=== PATIENT | male | born 1955 | race Caucasian/White ===

== ENCOUNTER 2021-10-07 18:41 | Emergency (ER) | payer MEDICARE, SELFPAY ==
[2021-10-07 18:44] VITALS: BP 144/81; PULSE 76; RESP 14; TEMP 36.2; BMI 31.1
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
--- NOTE | 2021-10-07 19:07 | RAD_ITS ---
STUDY: X-RAY - RIGHT KNEE REASON FOR EXAM: Male, 66 years old. Injury/Pain TECHNIQUE: For view(s) of the knee. COMPARISON: None. FINDINGS: Please see the impression. RAD/Knee 4 or More Views IMPRESSION: Nondisplaced fracture of the lateral tibial plateau, of uncertain age. CT scan is recommended for further evaluation. Mild to moderate tricompartmental osteoarthritis. Small suprapatellar joint effusion. Electronically Signed: Jensen Hayden MD at 19:32 EDT ,
--- NOTE | 2021-10-07 19:37 | CT_ITS ---
EXAM: CT RIGHT LOWER EXTREMITY WITHOUT INTRAVENOUS CONTRAST CLINICAL INDICATION: knee pain FALL, TWISTED LEG, KNEE PAIN TECHNIQUE: Helically acquired images were obtained of the right lower extremity without intravenous contrast. 2-D reformats were performed by the technologist. This CT exam was performed using one or more of the following dose reduction techniques: automated exposure control, adjustment of the mA and/or kV according to patient size, and/or use of iterative reconstruction technique. This report was created using [employer] report [employer] technology. RADIATION DOSE: CTDIvol = 15.35 mGy, DLP = 580.19 mGy-cm COMPARISON: None. FINDINGS: BONES/JOINTS: Small suprapatellar effusion. Small calcification in the lateral joint space. There is moderate degenerative arthrosis of the medial femorotibial compartment with moderate joint space narrowing. There is moderate degenerative arthrosis of the lateral femorotibial compartment with moderate joint space narrowing. There is moderate degenerative arthrosis of the patellofemoral articulation. No acute fracture. No subluxation. Normal alignment. SOFT TISSUES: Unremarkable. No soft tissue swelling or gas. No radiopaque foreign body. VASCULATURE: There are atherosclerotic vascular calcifications. CT/Extremity Lower without Contra IMPRESSION: 1. Small suprapatellar effusion. 2. Degenerative arthrosis. No acute fractures. Electronically Signed: Brooks Kam MD at 20:16 EDT Reading Location ID and State: [facility] / [place] , Service support ,
== END 2021-10-07 21:02 | disposition home or self-care (01) ==
PROVIDERS: Emergency Provider Emergency Medicine; PCP Family Medicine; Visit Provider Emergency Medicine
DX: S83.91XA Sprain of unspecified site of right knee, initial encounter (principal); J44.9 Chronic obstructive pulmonary disease, unspecified; E11.9 Type 2 diabetes mellitus without complications; M25.469 Effusion, unspecified knee; I10 Essential (primary) hypertension; W18.49XA Other slipping, tripping and stumbling without falling, initial encounter; Y92.017 Garden or yard in single-family (private) house as the place of occurrence of the external cause
CPT/HCPCS: 73564; 73700; 99282

== ENCOUNTER 2022-02-18 16:51 | Emergency (ER) | payer MEDICARE, SELFPAY ==
[2022-02-18 16:53] VITALS: BP 133/84; PULSE 72; RESP 14; TEMP 36.8; O2SAT 93; BMI 30.8
--- NOTE | 2022-02-18 19:33 | EDS_ITS ---
HPI History of Present Illness Chief Complaint: Complaint Narrative Narrative: Prostate cancer, had urinary retention with a catheter placed 2 weeks ago. Followed up with his urologist Dr. Medina in [place] yesterday, they did a voidance test that he passed, so they removed his catheter/left it out, but he had urinary retention again last night after the office was closed so he went to the [facility] and had a new catheter placed. He has had no gross hematuria since then, however now the flow stopped going through the catheter and he is leaking around it. He states he feels like he just emptied his entire bladder around the catheter. So now he is comfortable with regards to his abdomen. No fevers, nausea, vomiting, back pain. Yesterday with his voidance test, he did see quite a bit of sediment or blood clots he is not sure which. [facility] Medical History (Updated 02/18/22 @ 20:[address] Enzo Trevino MD) Cholecystectomy planned COPD (chronic obstructive pulmonary disease) Hypertension Marijuana smoker Prostate cancer Type 2 diabetes mellitus Allergy/AdvReac Type Severity Reaction Status Date / Time Penicillins [PCN] AdvReac Other Verified 02/18/22 16:52 Social History Smoking Status: Never smoker ROS ROS ED Constitutional Constitutional ED: Denies chills or fever(s) Eyes Eyes: Denies change in vision or diplopia ENT ENT ED: Denies rhinorrhea or sore throat Cardiovascular Cardiovascular: Denies chest pain or palpitations Respiratory/Chest Respiratory/Chest: Denies cough or dyspnea Gastrointestinal Gastrointestinal: Denies abdominal pain, diarrhea, nausea or vomiting Genitourinary Genitourinary ED: Reports as per HPI; Denies dysuria or hematuria Musculoskeletal Musculoskeletal: Denies back pain or neck pain Integumentary Denies abscess or rash Neurologic Neurologic: Denies headache(s), paresthesias or weakness Psychiatric Psychiatric: Denies anxiety or suicidal thoughts EXAM Physical Exam Const Vital Signs: 02/18/22 16:53 Temperature 98.2 F Temperature Source Temporal Pulse Rate 72 Respiratory Rate 14 Blood Pressure 133/84 H Blood Pressure Mean 100 Pulse Ox 93 Oxygen Delivery Method Room Air Positive well nourished and well developed General Appearance ED: well developed and NAD HEENT Reports moist mucous membranes normocephalic and atraumatic Eyes PERRL and EOMs intact bilaterally Neck full ROM and supple Resp normal respiratory effort GI non-tender and non-distended Auscultation: normoactive bowel sounds Palpation: soft Narrative: Normal penis. Nicolas catheter in place, no flow within it, nonbloody urine around it present. No erythema or blood at the urethral meatus. [address] Extremity normal to inspection General Extremety ED: Negative for edema, pulses abnormal or tenderness General Extremity: Negative for edema or pulses abnormal Neuro oriented x3, CN's II-XII intact bilaterally and no sensory deficits noted Sensorium / Orientation: awake and alert Motor Exam: strength 5/5 throughout Skin no rashes or lesions noted and no wounds MDM MDM MDM Narrative Medical decision making narrative: Nursing irrigated the catheter easily. Urine came flowing out of the catheter this was emptied and bladder scan for 50 cc. The patient drank fluids and subsequently drained 300 cc of transparent yellow nonbloody urine into the bag without any more leaking around the catheter. Given this I recommend discharging home with continued observation and follow-up with urology, return to the ER if catheter clogs again, I would recommend not replacing the catheter if its not needed. Patient is amenable to that and feels better. Discharge Plan Triage Chief Complaint: Complaint ED Provider: Enzo Trevino Dx/Rx/DC Orders Clinical Impression: Obstruction of Nicolas catheter Instructions: ED Nicolas Catheter, Care Primary Care Provider: Maranda Akhtar Referrals: Owen Medina [Other] (call for follow up ) Maranda Akhtar MD [Primary Care Provider] - Disposition Disposition: Home, Self Care
== END 2022-02-18 21:16 | disposition home or self-care (01) ==
PROVIDERS: Emergency Provider Emergency Medicine; PCP Family Medicine; Visit Provider Emergency Medicine
DX: T83.091A Other mechanical complication of indwelling urethral catheter, initial encounter (principal); J44.9 Chronic obstructive pulmonary disease, unspecified; E11.9 Type 2 diabetes mellitus without complications; I10 Essential (primary) hypertension; R33.9 Retention of urine, unspecified; Z85.46 Personal history of malignant neoplasm of prostate
CPT/HCPCS: 99282

== ENCOUNTER 2022-03-14 15:32 | Emergency (ER) | payer MEDICARE, SELFPAY ==
[2022-03-14 15:33] VITALS: BP 162/85; PULSE 74; RESP 18; TEMP 36.5; O2SAT 95; BMI 31.1
--- NOTE | 2022-03-14 16:07 | EDS_ITS ---
HPI <ELE Salguero - Last Filed: 03/14/22 21:49> History of Present Illness Chief Complaint: General Illness Narrative Narrative: Patient reports to the ED today with nausea that started this morning. He states he also feels he is getting a URI due to having a runny nose and cough that started yesterday. He states he took a COVID test this morning that was inconclusive. Patient currently has a Nicolas catheter due to urinary retention but denies having any current problems with this. He also has prostate cancer and is currently following with urology. He denies fever, chills, abdominal pain, diarrhea, vomiting, and dysuria. He states he occasionally gets hematuria but denies having any today. PFSH <ELE Salguero - Last Filed: 03/14/22 21:49> [facility] Medical History Cholecystectomy planned COPD (chronic obstructive pulmonary disease) Hypertension Marijuana smoker Prostate cancer Type 2 diabetes mellitus Home Medications ondansetron 4 mg disintegrating tablet 4 mg PO Q8H PRN nausea and vomiting #10 tabs 03/14/22 [Rx Last Taken Unknown] Allergy/AdvReac Type Severity Reaction Status Date / Time Penicillins [PCN] AdvReac Other Verified 03/14/22 15:37 Social History Smoking Status: Never smoker ROS <ELE Salguero - Last Filed: 03/14/22 21:49> ROS ED Constitutional Constitutional ED: Denies chills, fever(s) or sweats Eyes Eyes: Denies blurry vision or change in vision ENT ENT ED: Reports rhinorrhea and sore throat Cardiovascular Cardiovascular: Denies chest pain or palpitations Respiratory/Chest Respiratory/Chest: Reports cough; Denies dyspnea, dyspnea on exertion, shortness of breath at rest, shortness of breath with exertion, tachypnea or wheezing Gastrointestinal Gastrointestinal: Reports nausea; Denies abdominal pain, constipation, diarrhea or vomiting Genitourinary Genitourinary ED: Denies dysuria or hematuria Musculoskeletal Musculoskeletal: Denies back pain or myalgias Integumentary Denies abscess, Abrasions or rash Neurologic Neurologic: Denies headache(s) or weakness EXAM <ELE Salguero - Last Filed: 03/14/22 21:49> Physical Exam Const Vital Signs: 03/14/22 15:33 03/14/22 18:40 Temperature 97.7 F L Temperature Source Temporal Pulse Rate 74 Respiratory Rate 18 Blood Pressure 162/85 H 157/84 H Blood Pressure Mean 110 108 Pulse Ox 95 Oxygen Delivery Method Room Air Positive well nourished and well developed General Appearance ED: well developed HEENT Reports moist mucous membranes Eyes PERRL and EOMs intact bilaterally Neck supple Chest Wall inspection of chest normal Resp normal respiratory effort and clear to auscultation bilaterally Cardio regular rate, regular rhythm and no murmurs GI normal to inspection, nondistended, normoactive bowel sounds, non-tender and no masses; Negative for hepatosplenomegaly Narrative: urine in leg bag appears dark but no evidence of gross hematuria. Neuro oriented x3, CN's II-XII intact bilaterally and no sensory deficits noted Sensorium / Orientation: alert Motor Exam: strength 5/5 throughout Psych mental status grossly normal Skin no rashes or lesions noted, no wounds and skin turgor normal <Dr. Ryan Nguyen, DO - Last Filed: 03/14/22 22:12> Physical Exam Const Vital Signs: 03/14/22 15:33 03/14/22 18:40 Temperature 97.7 F L Temperature Source Temporal Pulse Rate 74 Respiratory Rate 18 Blood Pressure 162/85 H 157/84 H Blood Pressure Mean 110 108 Pulse Ox 95 Oxygen Delivery Method Room Air MDM <ELE Salguero - Last Filed: 03/14/22 21:49> [facility] Narrative Medical decision making narrative: Patient was given IV fluids due to dark appearance of urine and this significantly improved after IV fluids. Patient has tested positive for COVID- 19 but does not have any concerning symptoms here such as shortness of breath or difficulty breathing. His lungs sound clear and his vital signs are stable. His urine has been cultured to assess for acute cystitis. I feel comfortable with him discharging home with a prescription for Zofran. Patient is comfortable with plan. He has been instructed to return if he develops any worsening symptoms or has difficulty breathing or shortness of breath. Lab Data Attestation: I reviewed the patient's lab results. Lab results narrative: CBC significant for elevated neutrophils, monocytes, and eosinophils as well as decreased lymphocytes. This consistent with an infection from COVID. CMP unremarkable. Urine has been sent for culture. Labs: Laboratory Results - last 24 hr 03/14/22 03/14/22 03/14/22 16:44 16:44 16:50 WBC 5.8 RBC 4.36 L Hgb 12.6 L Hct 38.5 L MCV 88.3 MCH 28.9 MCHC 32.7 RDW Std Deviation 40.9 RDW Coeff of Tiff 12.6 Plt Count 157 MPV 10.2 Immature Gran % (Auto) 0.500 Neut % (Auto) 70.7 H Lymph % (Auto) 5.5 L [place] % (Auto) 16.3 H Eos % (Auto) 6.1 H Baso % (Auto) 0.9 Absolute Neuts (auto) 4.1 Absolute Lymphs (auto) 0.32 L Nucleated RBC % 0 Differential Comment SCANNED Sodium 135 L Potassium 4.1 Chloride 100 Carbon Dioxide 27.0 Anion Gap 8 BUN 22 H Creatinine 0.93 Estim Creat Clear Calc 84.60 Est GFR (MDRD) Af Amer 104 Est GFR (MDRD) Non-Af 86 BUN/Creatinine Ratio 23.7 H Glucose 203 H Calcium 9.1 Urine Color Yellow Urine Clarity Sl. Cloudy Urine pH 6.0 Ur Specific [place] 1.020 Urine Protein 100 H Urine Glucose (UA) 50 H Urine Ketones Negative Urine Occult Blood 250 H Urine Nitrite Negative Urine Bilirubin Negative Urine Urobilinogen Normal Ur Leukocyte Esterase 500 H Urine RBC 10-25 SEEN Urine WBC 25-50 SEEN Ur Squamous Epith Cells 0 SEEN Urine Bacteria 0 SEEN Urine Mucus 0 SEEN <Dr. Ryan Nguyen, DO - Last Filed: 03/14/22 22:12> [facility] Lab Data Labs: Laboratory Results - last 24 hr 03/14/22 03/14/22 03/14/22 16:44 16:44 16:50 WBC 5.8 RBC 4.36 L Hgb 12.6 L Hct 38.5 L MCV 88.3 MCH 28.9 MCHC 32.7 RDW Std Deviation 40.9 RDW Coeff of Tiff 12.6 Plt Count 157 MPV 10.2 Immature Gran % (Auto) 0.500 Neut % (Auto) 70.7 H Lymph % (Auto) 5.5 L [place] % (Auto) 16.3 H Eos % (Auto) 6.1 H Baso % (Auto) 0.9 Absolute Neuts (auto) 4.1 Absolute Lymphs (auto) 0.32 L Nucleated RBC % 0 Differential Comment SCANNED Sodium 135 L Potassium 4.1 Chloride 100 Carbon Dioxide 27.0 Anion Gap 8 BUN 22 H Creatinine 0.93 Estim Creat Clear Calc 84.60 Est GFR (MDRD) Af Amer 104 Est GFR (MDRD) Non-Af 86 BUN/Creatinine Ratio 23.7 H Glucose 203 H Calcium 9.1 Urine Color Yellow Urine Clarity Sl. Cloudy Urine pH 6.0 Ur Specific [place] 1.020 Urine Protein 100 H Urine Glucose (UA) 50 H Urine Ketones Negative Urine Occult Blood 250 H Urine Nitrite Negative Urine Bilirubin Negative Urine Urobilinogen Normal Ur Leukocyte Esterase 500 H Urine RBC 10-25 SEEN Urine WBC 25-50 SEEN Ur Squamous Epith Cells 0 SEEN Urine Bacteria 0 SEEN Urine Mucus 0 SEEN Radiography Diagnostic Testing: This patient was seen with a PA/MATH AND PHYSICS INSTRUCTOR Individually assessed they patient including history and physical. I have reviewed everything on the chart that is available and agree with the documentation provided by the PA/MATH AND PHYSICS INSTRUCTOR including discussion about the assessment, treatment plan, discussion, and return precautions. Patient presenting with some mild nausea. He does not have abdominal pain. He does state that his urine is sometimes dark and sometimes clear. Obtained a urinalysis today from his Bridgette catheter tubing while the leg bag was being changed. There is some occult blood here. There is 500 leukocyte esterase. 25-50 white blood cells without bacteria. I will send this for culture. Patient also tested himself for COVID today because he thought he had a cold for last couple days. He reported this was negative but then said it might of been faintly positive. His blood work did not show a leukocytosis and is lymphopenic. I did recheck a COVID swab here and it was positive for COVID. He is counseled on this. I think he can be discharged home with Zofran. Return precautions discussed. Discharge Plan Triage Chief Complaint: General Illness Other Complaint: Complaint ED Midlevel Provider: Mirela Seo ED Provider: Ryan Nguyen Dx/Rx/DC Orders Clinical Impression: COVID-19, Nausea Instructions: Coronavirus Disease 2019 (COVID-19): Caring for Yourself or Others Prescriptions: New ondansetron 4 mg tablet,disintegrating 4 mg PO Q8H PRN (Reason: nausea and vomiting) Qty: 10 0RF Primary Care Provider: Maranda Akhtar Referrals: Maranda Akhtar MD [Primary Care Provider] - 1 Week if not improving Activity Restrictions/Additional Instructions: Stay well-hydrated and use ibuprofen or Tylenol for fever control if one develops. Please seek medical attention if you develop shortness of breath, difficulty breathing, or worsening of symptoms. Disposition Disposition: Home, Self Care Discharge Date/Time: 03/14/22 18:41
[2022-03-14] MEDS: 0.9% Normal Saline 1,000 ML 999 ML IV (16:49)
[2022-03-14 16:52] LABS: Absolute Lymphocyte Count 0.32 X10^3/uL (0.83-4.51); Absolute Neutrophil Count 4.1 X10^3/uL (2.0-7.7); Basophil# 0.05 X10^3/uL; Basophil% 0.9 % (0-1); Eosinophil# 0.35 X10^3/uL; Eosinophils% 6.1 % (0-5); Hematocrit 38.5 % (40-54); Hemoglobin 12.6 g/dL (13.0-16.5); Lymphocyte # 0.32 X10^3/ul (0.83-4.51); Lymphocyte % 5.5 % (19-41); Mean Corp Hgb Conc 32.7 g/dL (32-36); Mean Corpuscular Hgb 28.9 pg (27.0-32.0); Mean Corpuscular Volume 88.3 fL (80-94); Mean Platelet Vol. 10.2 fl (6.2-12.0); Monocyte# 0.94 X10^3/uL; Monocyte% 16.3 % (0-10); NRBC Flagged by Analyzer 0 % (0-5); Neutrophil # 4.08 X10^3/uL (2.7-7.7); Neutrophil % 70.7 % (47-70); POSITIVE DIFFERENTIAL YES; Platelet Count 157 K/mm3 (150-450); RBC Distribution Width CV 12.6 % (11.6-14.6); RBC Distribution Width SD 40.9 fl (35.1-43.9); Red Blood Count 4.36 M/mm3 (4.6-6.2); White Blood Count 5.8 K/mm3 (4.4-11.0)
[2022-03-14 16:55] LABS: Bacteria 0 SEEN /hpf (None Seen); Mucous, Urine 0 SEEN /hpf (<or=2+); Squamous Epithelial Cells - UA 0 SEEN /hpf (0-5)
[2022-03-14 16:57] LABS: Color, Urine Yellow (Yellow); Glucose, Dipstick 50 mg/dl (Normal); Ketone-Dipstick Negative (Negative); Leukocyte Esterase-Dipstick 500 /ul (Negative); Nitrite-Dipstick Negative (Negative); Occult Blood-Urine 250 /ul (Negative); Protein-Dipstick 100 mg/dl (Negative); Urine Bilirubin Dipstick Negative (Negative); Urine Clarity Sl. Cloudy (Clear); Urine Urobilinogen Normal (Normal)
[2022-03-14 17:02] LABS: Anion Gap 8 (5-15); BUN 22 mg/dL (7-18); BUN/Creat Ratio 23.7 RATIO (10-20); Calcium,Total 9.1 mg/dL (8.5-10.1); Chloride 100 mmol/L (98-107); Creatinine, Serum 0.93 mg/dL (0.70-1.30); EST Glomerular Filtration Rate 86 mL/min (>60); Est Glom Filt Rate - Afr Amer 104 mL/min (>60); Glucose 203 mg/dL (74-106); Potassium 4.1 mmol/L (3.5-5.1); Sodium Level 135 mmol/L (136-145)
[2022-03-14 17:12] LABS: Red Blood Cells-Urine 10-25 SEEN /hpf (0-5); White Blood Cells 25-50 SEEN /hpf (0-5)
[2022-03-14 17:30] LABS: Differential Indicated SCAN CRITERIA MET
[2022-03-14 17:52] LABS: Differential Comment SCANNED
[2022-03-14 18:40] VITALS: BP 157/84
== END 2022-03-14 18:41 | disposition home or self-care (01) ==
PROVIDERS: Physician Assistant; Emergency Provider Student in an Organized Health Care Education/Training Program; PCP Family Medicine; Visit Provider Student in an Organized Health Care Education/Training Program
DX: U07.1 COVID-19 (principal); C61 Malignant neoplasm of prostate; R33.9 Retention of urine, unspecified; F12.90 Cannabis use, unspecified, uncomplicated; R11.0 Nausea
CPT/HCPCS: 80048; 81001; 85025; 87077; 87086; 87088; 87186; 87811; 96361; 96374; 99283; J2405

== ENCOUNTER 2022-03-19 22:08 | Emergency (ER) | payer MEDICARE, SELFPAY ==
[2022-03-19 22:08] VITALS: BP 132/74; PULSE 62; RESP 17; TEMP 36.3; O2SAT 95; BMI 32.8
[2022-03-19 22:15] VITALS: O2SAT 96
--- NOTE | 2022-03-19 22:37 | RAD_ITS ---
EXAM: XR CHEST, 1 VIEW CLINICAL INDICATION: cough TECHNIQUE: 2 portable upright views of the chest. This report was created using [employer] report generation technology. COMPARISON: None. FINDINGS: LUNGS AND PLEURAL SPACES: Discoid atelectasis is noted in the right lower lung on one of the 2 views. No consolidation or edema. No pneumothorax. Slight blunting of the left lateral costophrenic angle due to basilar pleural thickening versus a minimal pleural effusion. No peribronchial cuffing. HEART: Upper normal heart size with normal pulmonary vasculature. MEDIASTINUM: Central airways and mediastinal contour are unremarkable. Thoracic aorta is non-elongated. BONES/JOINTS: Bilateral shoulder prostheses. Thoracic degenerative spurring. No acute osseous abnormality. SOFT TISSUES: Unremarkable. RAD/Chest 1 View (Portable) IMPRESSION: Minimal right basilar atelectasis. No pneumonia. Electronically Signed: Marco Antonio Waller MD at 23:04 EST ,
[2022-03-19] MEDS: Albuterol Sulfate 8 gm Inhaler (60 puffs) 2 PUFF INHALATION (22:50)
[2022-03-19] MEDS: dexAMETHasone 10 MG/ML Vial IV (22:50)
[2022-03-19 22:53] LABS: Absolute Lymphocyte Count 0.89 X10^3/uL (0.83-4.51); Absolute Neutrophil Count 5.5 X10^3/uL (2.0-7.7); Basophil# 0.02 X10^3/uL; Basophil% 0.3 % (0-1); Eosinophil# 0.17 X10^3/uL; Eosinophils% 2.4 % (0-5); Hematocrit 36.7 % (40-54); Hemoglobin 12.2 g/dL (13.0-16.5); Lymphocyte # 0.89 X10^3/ul (0.83-4.51); Lymphocyte % 12.4 % (19-41); Mean Corp Hgb Conc 33.2 g/dL (32-36); Mean Corpuscular Hgb 28.8 pg (27.0-32.0); Mean Corpuscular Volume 86.6 fL (80-94); Mean Platelet Vol. 9.9 fl (6.2-12.0); Monocyte# 0.62 X10^3/uL; Monocyte% 8.6 % (0-10); NRBC Flagged by Analyzer 0 % (0-5); Neutrophil # 5.46 X10^3/uL (2.7-7.7); Platelet Count 137 K/mm3 (150-450); RBC Distribution Width CV 12.8 % (11.6-14.6); RBC Distribution Width SD 39.9 fl (35.1-43.9); Red Blood Count 4.24 M/mm3 (4.6-6.2); White Blood Count 7.2 K/mm3 (4.4-11.0)
[2022-03-19 23:09] LABS: Anion Gap 9 (5-15); BUN 17 mg/dL (7-18); BUN/Creat Ratio 17.6 RATIO (10-20); Calcium,Total 8.8 mg/dL (8.5-10.1); Chloride 103 mmol/L (98-107); Creatinine, Serum 0.97 mg/dL (0.70-1.30); EST Glomerular Filtration Rate 82 mL/min (>60); Est Glom Filt Rate - Afr Amer 100 mL/min (>60); Estimated Creatinine Clearance 81.11 ml/min; Glucose 141 mg/dL (74-106); Magnesium 1.7 mg/dL (1.6-2.6); Potassium 3.5 mmol/L (3.5-5.1); Sodium Level 139 mmol/L (136-145)
--- NOTE | 2022-03-19 23:20 | EX.ED.DYSGE1 ---
HPI History of Present Illness Chief Complaint: Shortness of Breath Narrative Narrative: Patient is a 67-year-old male with past medical history of COPD and prostate cancer. He states that he tested positive for COVID on Wednesday with a home test and then was in the ER secondary to Nicolas catheter issue so he was rechecked at that time and was confirmed positive. He states he was not placed on Paxlovid at that time. He states his family doctor started him on Decadron but he did not pick pulling machine tender the prescription yet. He states that today he was feeling increased shortness of breath and checked his pulse ox and was reading 88 to 89% at home which concerned him and therefore he comes in for evaluation. [facility] Medical History Cholecystectomy planned COPD (chronic obstructive pulmonary disease) Hypertension Marijuana smoker Prostate cancer Type 2 diabetes mellitus Home Medications ondansetron 4 mg disintegrating tablet 4 mg PO Q8H PRN nausea and vomiting #10 tabs 03/14/22 [Rx Last Taken Unknown] atorvastatin 80 mg tablet 80 mg PO DAILY 03/19/22 [History Last Taken Unknown] clonidine HCl 0.1 mg tablet 0.1 mg PO BID 03/19/22 [History Last Taken Unknown] clopidogrel 75 mg tablet 75 mg PO DAILY 03/19/22 [History Last Taken Unknown] doxazosin 4 mg tablet 4 mg PO DAILY 03/19/22 [History Last Taken Unknown] insulin detemir U-100 100 unit/mL (3 mL) subcutaneous pen (Levemir FlexTouch U-100 Insulin) 52 unit subcut QHS 03/19/22 [History Last Taken Unknown] labetalol 300 mg tablet 300 mg PO BID 03/19/22 [History Last Taken Unknown] nifedipine 30 mg tablet,extended release 30 mg PO DAILY 03/19/22 [History Last Taken Unknown] nirmatrelvir 300 mg (150 mg x2)-ritonavir 100 mg tablet,dose pack(EUA) (Paxlovid) See Rx Instructions PO .COMPLEX #30 tabs 03/19/22 [Rx Last Taken Unknown] pantoprazole 40 mg tablet,delayed release 40 mg PO DAILY 03/19/22 [History Last Taken Unknown] telmisartan 80 mg tablet 80 mg PO DAILY 03/19/22 [History Last Taken Unknown] Allergy/AdvReac Type Severity Reaction Status Date / Time metformin Allergy Hives Verified 03/19/22 22:14 Penicillins [PCN] AdvReac Other Verified 03/14/22 15:37 Social History Smoking Status: Never smoker ROS ROS ED Constitutional Constitutional ED: Denies chills or fever(s) ENT ENT ED: Denies sore throat Cardiovascular Cardiovascular: Denies chest pain Respiratory/Chest Respiratory/Chest: Reports cough and dyspnea Gastrointestinal Gastrointestinal: Denies abdominal pain, diarrhea, nausea or vomiting Genitourinary Genitourinary ED: Denies dysuria Musculoskeletal Musculoskeletal: Reports myalgias Integumentary Denies rash Neurologic Neurologic: Denies headache(s) Hematologic/Lymphatic Hematologic/Lymphatic: Denies easy bleeding or easy bruising EXAM Physical Exam Const Vital Signs: 03/19/22 22:08 03/19/22 22:15 03/19/22 23:28 Temperature 97.3 F L 97.1 F L Temperature Source Temporal Temporal Pulse Rate 62 62 Respiratory Rate 17 18 Respiratory Effort Normal Non-Labored Respiratory Depth Normal Respiratory Pattern Normal Blood Pressure 132/74 H 114/69 Blood Pressure Mean 93 84 Pulse Ox 95 95 Oxygen Delivery Method Room Air Room Air Room Air Positive well nourished and well developed General Appearance ED: well developed HEENT Reports moist mucous membranes HEENT Narrative: No tongue or lip swelling no airway edema or compromise Eyes PERRL and EOMs intact bilaterally Neck supple and no JVD Resp normal respiratory effort Resp Narrative: Breath sounds are diminished throughout with faint rhonchi with expiratory wheeze in the bilateral bases but no nasal flaring retractions tachypnea or accessory muscle use Cardio regular rate and regular rhythm Extremity normal to inspection Extremity Narrative: negative Homans' sign bilaterally Neuro oriented x3 and CN's II-XII intact bilaterally Sensorium / Orientation: alert Psych mental status grossly normal Skin no rashes or lesions noted MDM MDM MDM Narrative Medical decision making narrative: Patient presented to the ER satting in the mid to high 90s on room air. He did not have any increased work of breathing and to talk in full sentences without difficulty. He has known COVID so do not feel the need to recheck this. Because of his reported shortness of breath chest x-ray was obtained which did not reveal infiltrate or pneumothorax. Blood work showed no clinically significant findings. The patient was ambulated and his oxygen saturation remained in the mid 90s on room air. Therefore without desaturation with ambulation no sign of acute lung pathology such as pneumothorax or pleural effusion and stable lab work he does not need admitted otherwise safe discharge Lab Data Attestation: I reviewed the patient's lab results. Labs: Laboratory Results - last 24 hr 03/19/22 03/19/22 22:45 22:45 WBC 7.2 RBC 4.24 L Hgb 12.2 L Hct 36.7 L MCV 86.6 MCH 28.8 MCHC 33.2 RDW Std Deviation 39.9 RDW Coeff of Tiff 12.8 Plt Count 137 L MPV 9.9 Immature Gran % (Auto) 0.300 Neut % (Auto) 76.0 H Lymph % (Auto) 12.4 L [place] % (Auto) 8.6 Eos % (Auto) 2.4 Baso % (Auto) 0.3 Absolute Neuts (auto) 5.5 Absolute Lymphs (auto) 0.89 Nucleated RBC % 0 Sodium 139 Potassium 3.5 Chloride 103 Carbon Dioxide 27.0 Anion Gap 9 BUN 17 Creatinine 0.97 Estim Creat Clear Calc 81.11 Est GFR (MDRD) Af Amer 100 Est GFR (MDRD) Non-Af 82 BUN/Creatinine Ratio 17.6 Glucose 141 H Calcium 8.8 Magnesium 1.7 Radiography Diagnostic Testing: Clinical Impression(s) from Imaging Studies Chest X-Ray 03/19/22 22:37 IMPRESSION: Minimal right basilar atelectasis. No pneumonia. Electronically Signed: Marco Antonio Waller MD at 23:04 EST , Chest x-ray as interpreted by the emergency medicine physician reveals atelectasis without acute infiltrate pneumothorax or pleural effusion Discharge Plan Triage Chief Complaint: Shortness of Breath ED Provider: Jose Juan Farmer Dx/Rx/DC Orders Clinical Impression: COVID-19, Diabetes, History of prostate cancer Instructions: Coronavirus Disease 2019 (COVID-19): Caring for Yourself or Others Prescriptions: New Paxlovid (EUA) 300 mg (150 mg x 2)-100 mg tablets,dose pack See Rx Instructions .ROUTE .COMPLEX Qty: 30 0RF Rx Instructions: take TWO 150 mg tablets of nirmatrelvir with ONE 100 mg tablet of ritonavir twice daily for 5 days No Action ondansetron 4 mg tablet,disintegrating 4 mg PO Q8H PRN (Reason: nausea and vomiting) Qty: 10 0RF clopidogrel 75 mg tablet 75 mg PO DAILY Label Comments: TAKE 1 TABLET BY MOUTH EVERY DAY doxazosin 4 mg tablet 4 mg PO DAILY Label Comments: TAKE ONE TABLET BY MOUTH DAILY AT NIGHT atorvastatin 80 mg tablet 80 mg PO DAILY Label Comments: TAKE 1 TABLET BY MOUTH EVERY DAY AT NIGHT clonidine HCl 0.1 mg tablet 0.1 mg PO BID Label Comments: TAKE 1 TABLET BY MOUTH TWICE A DAY nifedipine 30 mg tablet extended release 30 mg PO DAILY Label Comments: TAKE 1 TABLET BY MOUTH EVERY DAY pantoprazole 40 mg tablet,delayed release (DR/EC) 40 mg PO DAILY Label Comments: TAKE 1 TABLET BY MOUTH EVERY DAY telmisartan 80 mg tablet 80 mg PO DAILY Label Comments: TAKE 1 TABLET BY MOUTH EVERY DAY IN THE MORNING labetalol 300 mg tablet 300 mg PO BID Label Comments: TAKE 1 TABLET BY MOUTH TWICE A DAY Levemir FlexTouch U-100 Insuln 100 unit/mL (3 mL) insulin pen 52 unit SUBCUT QHS Label Comments: INJECT 52 UNITS INTO THE SKIN NIGHTLY Primary Care Provider: Maranda Akhtar Referrals: Maranda Akhtar MD [Primary Care Provider] - Activity Restrictions/Additional Instructions: Please continue to use your inhaler with 1 to 2 puffs every 4-6 hours as needed for any shortness of breath or wheeze. Take the Decadron prescribed by your family doctor to reduce inflammation and use the Paxlovid to help reduce the viral load from COVID. If you have any worsening symptoms or further concerns return for repeat evaluation. Disposition Disposition: Home, Self Care
[2022-03-19 23:27] VITALS: O2SAT 94
[2022-03-19 23:28] VITALS: BP 114/69; PULSE 62; RESP 18; TEMP 36.2; O2SAT 95
[2022-03-19 23:50] VITALS: BP 114/69; PULSE 62; RESP 18; TEMP 36.2; O2SAT 95
== END 2022-03-19 23:51 | disposition home or self-care (01) ==
PROVIDERS: Emergency Provider Emergency Medicine; PCP Family Medicine; Visit Provider Emergency Medicine
DX: U07.1 COVID-19 (principal); J44.9 Chronic obstructive pulmonary disease, unspecified; E11.9 Type 2 diabetes mellitus without complications; Z79.4 Long term (current) use of insulin; I10 Essential (primary) hypertension; Z79.02 Long term (current) use of antithrombotics/antiplatelets; Z79.899 Other long term (current) drug therapy; Z85.46 Personal history of malignant neoplasm of prostate
CPT/HCPCS: 71045; 80048; 83735; 85025; 96374; 99285; A4216

== ENCOUNTER 2024-10-25 19:27 | Emergency (ER) | payer MEDICARE, SELFPAY ==
[2024-10-25] VITALS (8 sets, daily range): BP systolic 153–216; BP diastolic 82–102; PULSE 44–53; RESP 14–24; TEMP 36.8–37.1; O2SAT 92–98
[2024-10-25 20:31] LABS: Anion Gap 13 (5-15); BUN 27 mg/dL (4-19); BUN/Creat Ratio 20.9 RATIO (10-20); Calcium,Total 8.9 mg/dL (7.6-11.0); Carbon Dioxide 23.9 mmol/L (21.0-32.0); Chloride 103 mmol/L (98-108); Glucose 180 mg/dL (70-99); Potassium 4.1 mmol/L (3.3-5.1)
[2024-10-25 20:34] LABS: Mucous, Urine 0 SEEN /hpf (<or=2+)
--- NOTE | 2024-10-25 20:55 | EKG12_ITS ---
Test Reason : BRADYCARDIA Blood Pressure : */* mmHG Vent. Rate : 47 BPM Atrial Rate : 47 BPM P-R Int : 274 ms QRS Dur : 164 ms QT Int : 562 ms P-R-T Axes : 89 264 25 degrees QTcB Int : 497 ms Sinus bradycardia with 1st degree A-V block Right bundle branch block Abnormal ECG Confirmed by HAL CARRASCO, ELIAN ([id number]), editorial cartoonist GUSTAVO ANGELES ([id number]) on 10/26/2024 10:09:52 AM Referred By: Jaciel Aranda Confirmed By: ELIAN HONG MD
--- NOTE | 2024-10-25 20:55 | EKG12_ITS ---
Test Reason : BRADYCARDIA Blood Pressure : */* mmHG Vent. Rate : 47 BPM Atrial Rate : 47 BPM P-R Int : 274 ms QRS Dur : 164 ms QT Int : 562 ms P-R-T Axes : 89 264 25 degrees QTcB Int : 497 ms Sinus bradycardia with 1st degree A-V block Right bundle branch block Abnormal ECG Confirmed by HAL CARRASCO, ELIAN ([id number]), writer editor GUSTAVO ANGELES ([id number]) on 10/26/2024 10:09:52 AM Referred By: Jaciel Aranda Confirmed By: ELIAN HONG MD
[2024-10-25 21:45] LABS: Color, Urine Straw (Yellow); Glucose, Dipstick Normal (Normal); Ketone-Dipstick Negative (Negative); Leukocyte Esterase-Dipstick Negative /ul (Negative); Nitrite-Dipstick Negative (Negative); Occult Blood-Urine 10 /ul (Negative); Protein-Dipstick 100 mg/dl (Negative); Specific Gravity, Urine 1.015 (1.002-1.030); Urine Bilirubin Dipstick Negative (Negative)
[2024-10-25 22:20] LABS: Red Blood Cells-Urine 0-5 SEEN /hpf (0-5); Squamous Epithelial Cells - UA 0-5 SEEN /hpf (0-5)
--- NOTE | 2024-10-25 22:59 | EX.ED.DYSGE1 ---
HPI History of Present Illness Chief Complaint: Hypertension Detail of Chief Complaint: Longstanding hypertension that got worse this evening Informant: patient Onset/Context/Timing Onset: Today Context: Sudden Onset Timing: Intermittent Quality: Patient states blood pressure is normally elevated at 1 8190 systolic. His Location: Cardiovascular Current Severity: Moderate Maximum Severity: Severe Worsened by: Nothing Relieved by: Not applicable Associated Symptoms Associated Symptoms: Slight headache Narrative Narrative: Patient is a 69-year-old male. He is seen by [employer] hr[facility] developer in my [place] for his blood pressure control. He has had elevated blood pressure for greater than 6 years. He states his normal is systolic of 190-180. This evening his blood pressure was greater than 220. He had a headache. States he did not feel well. He denied double vision, blurred vision loss of vision. Eyes regulars ears or decreased hearing. He no trouble with speech or swallowing. He denied paresthesia, anesthesia or motor weakness upper or lower extremities. He denied trouble with balance or coordination. He denied chest pain or back pain. Prior similar symptoms: Yes Recent Illness/Hospitalization: No [facility] Medical History Prostate cancer COPD (chronic obstructive pulmonary disease) Cholecystectomy planned Marijuana smoker Type 2 diabetes mellitus Hypertension Home Medications ?Medication ?Instructions ?Recorded ?Last Taken ?Type ondansetron 4 mg disintegrating 4 mg PO Q8H PRN nausea and 03/14/22 Unknown Rx tablet vomiting #10 tabs atorvastatin 80 mg tablet 80 mg PO DAILY 03/19/22 Unknown History clonidine HCl 0.1 mg tablet 0.1 mg PO BID 03/19/22 Unknown History clopidogrel 75 mg tablet 75 mg PO DAILY 03/19/22 Unknown History doxazosin 4 mg tablet 4 mg PO DAILY 03/19/22 Unknown History insulin detemir U-100 100 unit/mL 52 unit subcut QHS 03/19/22 Unknown History (3 mL) subcutaneous pen (Levemir FlexTouch U-100 Insulin) labetalol 300 mg tablet 300 mg PO BID 03/19/22 Unknown History nifedipine 30 mg tablet,extended 30 mg PO DAILY 03/19/22 Unknown History release nirmatrelvir 300 mg (150 mg See Rx Instructions PO .COMPLEX 03/19/22 Unknown Rx x2)-ritonavir 100 mg tablet,dose #30 tabs pack (Paxlovid) pantoprazole 40 mg tablet,delayed 40 mg PO DAILY 03/19/22 Unknown History release telmisartan 80 mg tablet 80 mg PO DAILY 03/19/22 Unknown History Allergy/AdvReac Type Severity Reaction Status Date / Time metformin Allergy Hives Verified 10/25/24 19:33 Penicillins (PCN) AdvReac Other Verified 10/25/24 19:33 Social History Smoking Status: Former smoker ROS ROS ED Constitutional Constitutional ED: Denies chills or fever(s) Eyes Eyes: Denies blurry vision, change in vision or diplopia ENT ENT ED: Denies ear pain, rhinorrhea or sore throat Cardiovascular Cardiovascular: Denies chest pain, orthopnea, palpitations or paroxysmal nocturnal dyspnea Respiratory/Chest Respiratory/Chest: Denies cough, dyspnea, dyspnea on exertion, orthopnea or paroxysmal nocturnal dyspnea Gastrointestinal Gastrointestinal: Denies abdominal pain, nausea or vomiting Genitourinary Genitourinary ED: Denies dysuria, hematuria or urinary frequency Musculoskeletal Musculoskeletal: Denies arthralgias, back pain, myalgias or neck pain Integumentary Denies rash Neurologic Neurologic: Reports headache(s); Denies paresthesias or weakness Psychiatric Psychiatric: Denies anxiety or depression Endocrine Endocrinology: Denies cold intolerance or heat intolerance Hematologic/Lymphatic Hematologic/Lymphatic: Reports systems reviewed and no addt'l complaints, except as documented EXAM Physical Exam Const Vital Signs: 10/25/24 19:28 10/25/24 19:31 10/25/24 20:16 Temperature 98.8 F Temperature Source Oral Pulse Rate 53 L 51 L Respiratory Rate 16 23 H Respiratory Effort Normal Non-Labored Respiratory Pattern Normal Blood Pressure 190/94 H 156/97 H Blood Pressure Mean 126 117 Pulse Ox 95 Oxygen Delivery Method Room Air 10/25/24 20:30 10/25/24 21:00 10/25/24 21:00 Temperature Temperature Source Pulse Rate 47 L 49 L 46 L Respiratory Rate 21 H 24 H 21 H Respiratory Effort Respiratory Pattern Blood Pressure 216/101 H 153/82 H 153/82 H Blood Pressure Mean 133 105 104 Pulse Ox 96 96 95 Oxygen Delivery Method Room Air 10/25/24 21:30 10/25/24 22:00 Temperature Temperature Source Pulse Rate 44 L 44 L Respiratory Rate 20 H 16 Respiratory Effort Respiratory Pattern Blood Pressure 172/89 H 187/90 H Blood Pressure Mean 113 122 Pulse Ox 95 95 Oxygen Delivery Method Blood pressure improved without treatment. Positive well nourished and well developed General Appearance ED: well developed and NAD; Negative for cyanotic, diaphoretic or pallor HEENT Reports moist mucous membranes HEENT Narrative: Head is atraumatic normocephalic. Ears normal. Nares patent. Posterior pharynx is normal. Uvula is midline. There is no deviation of the tongue with protrusion. Eyes PERRL and EOMs intact bilaterally Eyes Narrative: There is no nystagmus. There is no visual field cut. General Eye ED: Negative for pale conjunctiva or scleral icterus Neck no lymphadenopathy, supple and no JVD Neck Narrative: There is no carotid bruit noted on the right or left. Chest Wall Negative for inspection of chest normal or palpation of chest normal Resp normal respiratory effort and clear to auscultation bilaterally Cardio regular rhythm, S1 normal heart sound, S2 normal heart sound and no murmurs Rate: bradycardia GI normal to inspection, nondistended, normoactive bowel sounds, non-tender, non-distended and no masses; Negative for hepatosplenomegaly Back/Spine no CVA tenderness Extremity normal to inspection Neuro oriented x3, CN's II-XII intact bilaterally and no sensory deficits noted Neuro Narrative: DTR 1+ bicep, brachialis, patella and ankle. There is no clonus or Babinski sign noted. There is no dysmetria. Sensorium / Orientation: alert Motor Exam: strength 5/5 throughout Psych mental status grossly normal Skin no rashes or lesions noted, no wounds and skin turgor normal General Skin Exam: Negative for jaundice or pallor MDM MDM MDM Narrative Medical decision making narrative: Patient had increase in his blood pressure compared to normal. He is on multiple antihypertensive meds. He is probably bradycardic because of the fact that he is on 300 mg of labetalol twice daily and clonidine which can cause bradycardia as well. He is on 0.1 mg twice daily. He is also on nifedipine and anticholesterol med. He is also noted to be on an ARB. Patient was observed and blood work was obtained to assess for endorgan dysfunction. His BMP is remarked for slight elevation of creatinine of 1.29. UA reveals proteinuria and occult blood. Microscopic reveals 0-5 RBCs. Lab Data Attestation: I reviewed the patient's lab results. Lab results narrative: Patient's prior BUN and creatinine dated March 19, 2022 was 17 and 0.97. Since his blood pressure has come down and even lower than his baseline we will have him follow-up with his [employer] hr[employer] developer to regulate his blood pressure meds. Labs: Laboratory Results - last 24 hr 10/25/24 10/25/24 19:34 20:21 Sodium 140 Potassium 4.1 Chloride 103 Carbon Dioxide 23.9 Anion Gap 13 BUN 27 H Creatinine 1.29 H Est GFR (MDRD) Non-Af 60 BUN/Creatinine Ratio 20.9 H Glucose 180 H Calcium 8.9 Urine Color Straw Urine Clarity Clear Urine pH 6.0 Ur Specific [place] 1.015 Urine Protein 100 H Urine Glucose (UA) Normal Urine Ketones Negative Urine Occult Blood 10 H Urine Nitrite Negative Urine Bilirubin Negative Urine Urobilinogen Normal Ur Leukocyte Esterase Negative Urine RBC 0-5 SEEN Urine WBC 0-5 SEEN Ur Squamous Epith Cells 0-5 SEEN Urine Bacteria 0 SEEN Urine Mucus 0 SEEN Discharge Plan Triage Chief Complaint: Hypertension ED Provider: Jaciel Aranda Dx/Rx/DC Orders Clinical Impression: Hypertension, accelerated, Type 2 diabetes mellitus with hyperglycemia, Sinus bradycardia, persistent, Hypercholesterolemia, Hematuria with proteinuria, Elevated serum creatinine Instructions: ED Hypertension, Established, ED Renal Insufficiency Prescriptions: No Action ondansetron 4 mg tablet,disintegrating 4 mg PO Q8H PRN (Reason: nausea and vomiting) Qty: 10 0RF clopidogrel 75 mg tablet 75 mg PO DAILY Patient Comments: TAKE 1 TABLET BY MOUTH EVERY DAY doxazosin 4 mg tablet 4 mg PO DAILY Patient Comments: TAKE ONE TABLET BY MOUTH DAILY AT NIGHT atorvastatin 80 mg tablet 80 mg PO DAILY Patient Comments: TAKE 1 TABLET BY MOUTH EVERY DAY AT NIGHT clonidine HCl 0.1 mg tablet 0.1 mg PO BID Patient Comments: TAKE 1 TABLET BY MOUTH TWICE A DAY nifedipine 30 mg tablet extended release 30 mg PO DAILY Patient Comments: TAKE 1 TABLET BY MOUTH EVERY DAY pantoprazole 40 mg tablet,delayed release (DR/EC) 40 mg PO DAILY Patient Comments: TAKE 1 TABLET BY MOUTH EVERY DAY telmisartan 80 mg tablet 80 mg PO DAILY Patient Comments: TAKE 1 TABLET BY MOUTH EVERY DAY IN THE MORNING labetalol 300 mg tablet 300 mg PO BID Patient Comments: TAKE 1 TABLET BY MOUTH TWICE A DAY Levemir FlexTouch U100 Insulin 100 unit/mL (3 mL) insulin pen 52 unit SUBCUT QHS Patient Comments: INJECT 52 UNITS INTO THE SKIN NIGHTLY Paxlovid 300 mg (150 mg x 2)-100 mg tablets,dose pack See Rx Instructions .ROUTE .COMPLEX Qty: 30 0RF Rx Instructions: take TWO 150 mg tablets of nirmatrelvir with ONE 100 mg tablet of ritonavir twice daily for 5 days Primary Care Provider: Maranda Akhtar Referrals: Maranda Akhtar MD [Primary Care Provider] - Activity Restrictions/Additional Instructions: 1. Follow-up with your [employer] hr[employer] developer regarding your high blood pressure. Print Language: [place] Disposition Disposition: Home, Self Care
== END 2024-10-25 23:19 | disposition home or self-care (01) ==
PROVIDERS: Emergency Provider Emergency Medicine; PCP Family Medicine; Referring Provider Emergency Medicine; Visit Provider Emergency Medicine
DX: I10 Essential (primary) hypertension (principal); E11.65 Type 2 diabetes mellitus with hyperglycemia; Z79.4 Long term (current) use of insulin; R00.1 Bradycardia, unspecified; R80.9 Proteinuria, unspecified; R31.9 Hematuria, unspecified; R79.89 Other specified abnormal findings of blood chemistry; E78.00 Pure hypercholesterolemia, unspecified; Z79.02 Long term (current) use of antithrombotics/antiplatelets; Z79.899 Other long term (current) drug therapy; Z87.891 Personal history of nicotine dependence
CPT/HCPCS: 80048; 81001; 93005; 99285